=== PATIENT | male | born 1975 | race Caucasian/White ===

== ENCOUNTER → 2019-02-25 | Day surgery (SDC) | payer OTHER ==
[2019-02-24 12:21] LABS: BASOPHILS # (AUTO) 0.1 (0.0-0.1); BASOPHILS % 1.1 % (0.0-1.0); EOSINOPHILS # (AUTO) 0.9 (0.0-0.4); EOSINOPHILS % 11.5 % (0.0-6.0); HEMATOCRIT 42.7 % (38.2-49.6); HEMOGLOBIN 14.3 g/dL (14.0-18.0); LYMPHOCYTES # (AUTO) 2.5 (1.0-3.2); LYMPHOCYTES % 32.1 % (18.0-39.1); MEAN CORPUSCULAR HEMOGLOBIN 31.2 pg (28-32); MEAN CORPUSCULAR HGB CONC 33.5 g/dL (31-35); MEAN CORPUSCULAR VOLUME 93.2 fL (81-99); MONOCYTES # (AUTO) 0.7 (0.2-0.8); MONOCYTES % 8.4 % (4.4-11.3); NEUTROPHILS # (AUTO) 3.7 (2.1-6.9); NEUTROPHILS % 46.8 % (38.7-80.0); PLATELET COUNT 256 x10e3/uL (140-360); RED BLOOD COUNT 4.58 x10e6/uL (4.3-5.7); RED CELL DISTRIBUTION WIDTH 12.1 % (11.7-14.4)
[2019-02-24 12:32] LABS: ANION GAP 16.9 mmol/L (8-16); BLOOD UREA NITROGEN 13 mg/dL (7-26); BUN/CREATININE RATIO 14 (6-25); CALCIUM 9.7 mg/dL (8.4-10.2); CARBON DIOXIDE 27 mmol/L (22-29); CHLORIDE 98 mmol/L (98-107); CREATININE, SERUM 0.91 mg/dL (0.72-1.25); EST GLOMERULAR FILTRATION RATE > 60 ML/MIN (60-); GLUCOSE 190 mg/dL (74-118); POTASSIUM 3.9 mmol/L (3.5-5.1); SODIUM 138 mmol/L (136-145)
--- NOTE | 2019-02-24 12:36 | Diagnostic Imaging Report ---
EXAMINATION: CHEST 2 VIEWS INDICATION: Pre-operative COMPARISON: None FINDINGS: LINES/TUBES:None LUNGS:The lungs are moderately inflated. No focal consolidation or pulmonary edema. PLEURA:No pleural effusion or pneumothorax. MEDIASTINUM:The cardiomediastinal silhouette appears normal in size and shape. BONES/SOFT TISSUES:No acute osseous injury. Thoracic spinal nerve stimulator device partially visualized. ABDOMEN:No free air under the diaphragm. IMPRESSION: No focal pneumonia or pulmonary edema. Signed by: Keon Le MD on 02/24/2019 12:33 PM
[~2019-02-25] MED LIST: ACETAMINOPHEN 1000 MG/100 ML 100 ML IV ONE; ACETAMINOPHEN 1000 MG/100 ML IV ONE; ATIVAN1 MG PO; BABY ASPIRIN81 MG PO; CEFAZOLIN SOD 1 GM/NS 50ML 50 ML IV ONE; DESFLURANE 240 ML BTL INH ONE; DEXAMETHASONE SOD PHOS INJ 4 MG/ML VIAL ONE; FENTANYL CITRATE/PF 100MCG/2 ML INJ ONE; FUROSEMIDE40 MG PO; GLYCOPYRROLATE INJ 1MG/ 5 ML SYR ONE; KETOROLAC TROMETHAMINE 30 MG/ML VIAL ONE; LIDOCAINE HCL 2% LOCAL INJ 5 ML SDV VIAL INJ ONE; LISINOPRIL10 MG PO; METFORMIN HCL500 MG PO; METOPROLOL SUCC50 MG PO; METOPROLOL TART25 MG PO; MIDAZOLAM HCL 2 MG/2 ML VIAL ONE; NEOSTIGMINE 5 MG/5ML SYR ONE; ONDANSETRON HCL INJ 2MG/ML 2ML 2 MG/ML VIAL ONE; PLAVIX75 MG PO; PROPOFOL IV EMULSION 10 MG/ML 20 ML VIAL ONE; ROCURONIUM BROMIDE 10 MG/ML 5ML VIAL ONE; SIMVASTATIN20 MG PO; SUCCINYLCHOLINE 200 MG/10 ML SYR ONE; Z.0.NORVASC5 MG
--- OUTSIDE RECORDS SUMMARY | 2019-02-25 06:36 | XMS REPORT ---
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 Allergies, Adverse Reactions, Alerts This patient has no known allergies or adverse reactions. Medications This patient has no known medications. Results Test Description Test Time Test Comments Text Results Atomic Results Result Comments CHEST 2 VIEWS 2019-02-24 12:31:00 [place] [address] Patient Name: DK IBARRA MR #: [id number] : 1975 Age/Sex: 43/M Req #: [id number] Adm Physician: Ordered by: CHRISTIANO MONTOYA MD Report #: [id number] Location: OR Room/Bed: Procedure: [id number] DX/CHEST 2 VIEWS Exam Date: 02/24/19 Exam Time: 1200 REPORT STATUS: Signed EXAMINATION: CHEST 2 VIEWS INDICATION: Pre-operative COMPARISON: None FINDINGS: LINES/TUBES:None LUNGS:The lungs are moderately inflated. No focal consolidation or pulmonary edema. PLEURA:No pleural effusion or pneumothorax. MEDIASTINUM:The cardiomediastinal silhouette appears normal in size and shape. BONES/SOFT TISSUES:No acute osseous injury. Thoracic spinal nerve stimulator device partially visualized. ABDOMEN:No free air under the diaphragm. IMPRESSION: No focal pneumonia or pulmonary edema. Signed by: Chloe Le MD on 02/24/2019 12:33 PM Dictated By: CHLOE LE MD 1233 Transcribed By: ADAM on 02/24/19 1233 COPY TO: CHRISTIANO MONTOYA MD CT LUMBAR SPINE WO [place] [address] Patient Name: DK IBARRA MR #: [id number] : 1975 Age/Sex: 41/M Req #: [id number] Adm Physician: Ordered by: ALEJANDRO PITTMAN MD Report #: [id number] Location: ER Room/Bed: Procedure: [id number] CT/CT LUMBAR SPINE WO Exam Date: 03/01/17 Exam Time: 2124 REPORT STATUS: Signed History: Back pain, status post fall. Comparison studies: X-ray lumbar spine from 03/01/2017. Report of CT lumbar spine from 10/17/2010, images are not available for comparison at the time of interpretation. Technique: Axial images were obtained through the lumbar spine from L1-S1. Coronal and sagittal images reconstructed from the axial data. Intravenous contrast: None Findings: The usual 5 non-rib bearing lumbar vertebral bodies are present. Alignment: Normal lordosis. No scoliosis. 4 mm grade 1 retrolisthesis at level L2-L3 is likely degenerative. Soft tissues: No abnormalities. Paraspinal muscles: Fatty atrophy of left posterior paraspinal muscles extends from level L4-S1. Sacroiliac joints: Mild degenerative changes in bilateral sacroiliac joints with sclerosis, decreased joint space and vacuum phenomenon. Vertebrae: Chronic compression and anterior wedge-shaped deformity of L1 with approximately 30% loss of vertebral body height particularly in the anterior aspect without retropulsion of fracture fragments into the spinal canal. Chronic mild compression and anterior wedging deformity of L2. 1.2 cm lytic lesion within L3 vertebral body may represent hemangioma or Schmorl's node. Findings suggestive of left hemilaminotomy at level L2 and L4. Degenerative changes: L1-L2: Disc bulge and osteophyte results in mild canal stenosis. No foraminal stenosis. L2-L3: Disc bulge in combination with grade 1 retrolisthesis, bilateral facet arthrosis and thickened ligamentum flavum results in mild canal stenosis. Bilateral mild foraminal stenosis. L3-L4: Asymmetric disc bulge to the left without significant canal stenosis. Mild right and moderate left foraminal stenosis. L4-L5: Asymmetric disc bulge to the right without significant canal stenosis. Mild bilateral foraminal stenosis. Mild bilateral facet arthrosis. L5-S1: Disc bulge without canal stenosis. Mild left facet arthrosis. Bilateral mild foraminal stenosis. IMPRESSION: 1. No acute fracture. 2. Chronic compression and anterior wedge-shaped deformity of L1 and L2 (suboptimal evaluation as prior images are not available for comparison at the time of interpretation, comparison was made with report of CT lumbar spine from 10/17/2010). 3. Lumbar spondylosis as detailed above. 4. Ligament, spinal cord and or vascular abnormalities cannot be excluded on the basis of this examination. Signed by: Dr. Racheal Pollack M.D. on 03/01/2017 10:11 PM Dictated By: RACHEAL POLLACK MD 10 Transcribed By: ADAM on 03/01/172210 COPY TO: ALEJANDRO PITTMAN MD SP LUMBAR AP LATERAL 2-3VWS [place] [address] Patient Name: DK IBARRA MR #: [id number] : 1975 Age/Sex: 41/M Req #: [id number] Adm Physician: Ordered by: [employer] Report #: [id number] Location: ER Room/Bed: Procedure: [id number] DX/SP LUMBAR AP LATERAL 2-3VWS Exam Date: 03/01/17 Exam Time: 1800 REPORT STATUS: Signed PROCEDURE: X-RAY LUMBAR SPINE, TWO VIEWS COMPARISON: None. INDICATIONS: FELL FINDINGS: Previous of the lumbar spine (AP, lateral, and L5-S1 view). There are 5 lumbar-type vertebral bodies. There is moderate disc space narrowing at L1-L2 and L2-L3 with anterior osteophytes. Mild anterior wedging of L1 may be physiologic. Moderate facet arthrosis affects the lower lumbar spine. There is minimal retrolisthesis of L2 on L3. There are no fractures, lytic or blastic lesions. There are mild degenerative changes of the sacroiliac joints.. CONCLUSION: Multilevel degenerative changes of the lumbar spine. Mild anterior wedging of L1 may be physiologic. Correlate site of maximum tenderness. Dictated by: Lasha Solis M.D. on 03/01/2017 at 19:03 Electronically approved by: Lasha Solis M.D. on 03/01/2017 at 19:03 Dictated By: LASHA SOLIS MD 02 Transcribed By: LEONOR on 03/01/171902 COPY TO: [employer] HIP RIGHT 2-3 VW (+/- PELVIS) [place] [address] Patient Name: DK IBARRA MR #: [id number] : 1975 Age/Sex: 41/M Req #: [id number] Adm Physician: Ordered by: [employer] Report #: [id number] Location: ER Room/Bed: Procedure: DX/HIP RIGHT 2-3 VW (+/- PELVIS) Exam Date: Exam Time: REPORT STATUS: Signed PROCEDURE: HIP RIGHT 2-3 VW (+/- PELVIS) COMPARISON: None. INDICATIONS: Fall FINDINGS: 2 views of the right hip (AP and lateral) and one additional AP view of the pelvis No fracture or dislocation. Joint spaces are maintained. Soft tissues are unremarkable. CONCLUSION: No acute posttraumatic abnormality of the pelvis or right hip Dictated by: Lasha Solis M.D. on 03/01/2017 at 19:06 Electronically approved by: Lasha Solis M.D. on 03/01/2017 at 19:06 Dictated By: LASHA SOLIS MD 05 Transcribed By: LEONOR on 03/01/171905 COPY TO: [employer] CT BRAIN WO [place] [address] Patient Name: DK IBARRA MR #: [id number] : 1975 Age/Sex: 41/M Req #: [id number] Adm Physician: Ordered by: [employer] CHA[employer] Report #: [id number] Location: ER Room/Bed: Procedure: CT/CT BRAIN WO Exam Date: 03/01/17 Exam Time: 1800 REPORT STATUS: Signed History: Fall Comparison studies: None Technique: Axial images were obtained from the skull base to the vertex. Coronal and sagittal reconstructions obtained from the axial data. Findings: Scalp/skull: No abnormalities. No fractures, blastic or lytic lesions. Extra-axial spaces: No masses. No fluid collections. Brain sulci: Appropriate for age. Ventricles: Normal in size and configuration. No hydrocephalus. Parenchyma: No abnormal densities. No masses, hemorrhage, acute or chronic cortical vascular insults. Sellar/suprasellar region: No abnormalities Craniocervical junction: Patent foramen magnum. No Chiari one malformation. Left maxilla sinus retention cyst. IMPRESSION: No acute abnormalities. Signed by: DR Carolyn Quach M.D. on 03/01/2017 8:16 PM Dictated By: CAROLYN MAK MD 15 Transcribed By: ADAM on 03/01/172015 COPY TO: [employer] CT CERVICAL SPINE WO [place] [address] Patient Name: DK IBARRA MR #: [id number] : 1975 Age/Sex: 41/M Req #: [id number] Adm Physician: Ordered by: [employer] Report #: [id number] Location: ER Room/Bed: Procedure: [id number] CT/CT CERVICAL SPINE WO Exam Date: 03/01/17 Exam Time: 1800 REPORT STATUS: Signed History: Fall Comparison studies: None Technique: Axial images were obtained through the cervical region.. Coronal and sagittal images reconstructed from the axial data.. Intravenous contrast: None Findings: Airway: Patent. Fractures: None. Soft tissues: No gross abnormalities. Atlantoaxial articulation: Intact. Alignment: Reversal of normal cervical lordosis. Cervicomedullary junction: No abnormalities. The foramen magnum is patent. Vertebrae: No infection or neoplasm. Degenerative changes: Mild. IMPRESSION: 1. No acute fracture or dislocation. Signed by: DR Carolyn Quach M.D. on 03/01/2017 8:30 PM Dictated By: CAROLYN MAK MD 29 Transcribed By: ADAM on 03/01/172029 COPY TO: [employer] FOREARM LEFT 2 VIEW [place] [address] Patient Name: DK IBARRA MR #: [id number] : 1975 Age/Sex: 41/M Req #: [id number] Adm Physician: Ordered by: [employer] Report #: [id number] Location: ER Room/Bed: Procedure: [id number] DX/FOREARM LEFT 2 VIEW Exam Date: 03/01/17 Exam Time: 1799 REPORT STATUS: Signed PROCEDURE: X-RAY LEFT FOREARM, TWO VIEWS COMPARISON: None. INDICATIONS: FELL FINDINGS: 2 views of the left forearm (AP lateral). No fracture or dislocation. Joint spaces are maintained. Soft tissues are unremarkable. CONCLUSION: No acute post traumatic abnormality of the left forearm. Dictated by: Lasha Solis M.D. on 03/01/2017 at 19:08 Electronically approved by: Lasha Solis M.D. on 03/01/2017 at 19:08 Dictated By: LASHA SOLIS MD 07 Transcribed By: LEONOR on 03/01/171907 COPY TO: [employer] ELBOW LEFT COMPLETE [place] [address] Patient Name: DK IBARRA MR #: [id number] : 1975 Age/Sex: 41/M Req #: [id number] Adm Physician: Ordered by: [employer] Report #: [id number] Location: ER Room/Bed: Procedure: [id number] DX/ELBOW LEFT COMPLETE Exam Date: 03/01/17 Exam Time: 1800 REPORT STATUS: Signed PROCEDURE: X-RAY LEFT ELBOW, COMPLETE COMPARISON: None. INDICATIONS: FELL FINDINGS: 3 views of the left elbow (AP, lateral, and oblique) No fracture or dislocation. Joint spaces are maintained. Soft tissues are unremarkable. CONCLUSION: No acute post traumatic abnormality of the left elbow. Dictated by: Lasha Solis M.D. on 03/01/2017 at 19:10 Electronically approved by: Lasha Solis M.D. on 03/01/2017 at 19:10 Dictated By: LASHA SOLIS MD 09 Transcribed By: LEONOR on 03/01/171909 COPY TO: [employer]
--- OUTSIDE RECORDS SUMMARY | 2019-02-25 06:36 | XMS REPORT | Clinical Summary ---
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 Active FLUoxetine (PROzac) 40 MG Take 40 mg by 0 capsule mouth daily. Active amitriptyline (ELAVIL) 25 Take 50 mg by 0 MG tablet mouth nightly. Active metoprolol succinate XL Take 25 mg by 0 (TOPROL-XL) 25 mg 24 hr mouth daily. tablet Active lisinopril Take 10 mg by 0 (PRINIVIL,ZESTRIL) 10 mg mouth daily. tablet Active metFORMIN (GLUCOPHAGE) Take 500 mg 0 500 mg tablet by mouth daily with breakfast. Active gabapentin (NEURONTIN) Take 1,200 mg 0 600 mg tablet by mouth 4 (four) times a day. Active topiramate (TOPAMAX) 50 Take 50 mg by 0 MG tablet mouth 2 (two) times a day. Active clonAZEPAM (KlonoPIN) 1 Take 1 mg by 0 MG tablet mouth 2 (two) times a day as needed for seizures. Active furosemide (LASIX) 20 mg Take 20 mg by 0 tablet mouth daily. Active gemfibrozil (LOPID) 600 Take 600 mg 0 04/10/201 MG tablet by mouth 2 8 (two) times a day. Active morPHINE (MS CONTIN) 30 TAKE 1 TABLET 0 04/27/201 MG 12 hr tablet BY MOUTH 8 EVERY MORNING AND 1 TABLET EVERY EVENING Active quetiapine fumarate Take 300 mg 0 (SEROQUEL ORAL) by mouth nightly. Active zolpidem (AMBIEN) 5 MG Take 5 mg by 0 tablet mouth nightly as needed for sleep. Active busPIRone (BUSPAR) 15 MG Take 15 mg by 0 tablet mouth 4 9 (four) times a day. Active tiZANidine (ZANAFLEX) 4 Take 4 mg by 0 MG tablet mouth 3 9 (three) times a day. 07/10/2018 Discontinued (Discontinued by another clinician) temazepam (RESTORIL) 15 Take 30 mg by 0 mg capsule mouth nightly as needed for sleep. 08/13/2018 Discontinued (Reorder) HYDROcodone-acetaminophen TAKE 1 TABLET 0 (NORCO) 10-325 mg per BY MOUTH 8 tablet EVERY SIX HOURS NEEDED (MAX 4 TABLETS PER DAY) 08/13/2018 Discontinued (Discontinued by another clinician) methocarbamol (ROBAXIN) TAKE 1 TABLET 1 750 MG tablet BY MOUTH 8 THREE TIMES DAILY NEEDED FOR SPASMS 07/10/2018 Discontinued (Discontinued by another clinician) testosterone cypionate Inject 200 mg 0 (DEPOTESTOTERONE into the 8 CYPIONATE) 200 mg/mL shoulder, injection thigh, or buttocks every 14 (fourteen) days. 08/13/2018 Discontinued (Discontinued by another clinician) potassium chloride 20 mEq Take 20 mEq 0 tablet extended release by mouth 2 (two) times a day. 07/10/2018 Discontinued (Discontinued by another clinician) traZODone (DESYREL) 50 MG Take 50-100 0 tablet mg by mouth nightly. 03/18/2018 aspirin 325 MG tablet Take 1 tablet 30 tablet 0 (325 mg 8 total) by mouth daily for 30 days. 03/17/2018 lamoTRIgine (LaMICtal) 25 Take 2 120 tablet 0 MG tablet tablets (50 8 mg total) by mouth 2 (two) times a day for 30 days. 07/20/2018 bisacodyl (DULCOLAX) 10 Insert 1 30 0 mg suppository suppository suppository 9 (10 mg total) into the rectum daily as needed for constipation for up to 30 days. 07/12/2018 Discontinued (Stop Taking at Discharge) clopidogrel (PLAVIX) 75 Take 75 mg by 0 mg tablet mouth daily. 9 07/19/2018 doxycycline (VIBRAMYCIN) Take 2 14 capsule 0 50 MG capsule capsules (100 9 mg total) by mouth 2 (two) times a day for 7 days. 08/20/2018 doxycycline (VIBRAMYCIN) Take 1 14 capsule 0 50 MG capsule capsule (50 9 mg total) by mouth 2 (two) times a day for 7 days. 08/19/2018 HYDROcodone-acetaminophen TAKE 1 TABLET 30 tablet 0 (NORCO) 10-325 mg per BY MOUTH 9 tablet EVERY SIX HOURS NEEDED (MAX 4 TABLETS PER DAY) 01/19/2019 amoxicillin-pot Take 1 tablet 20 tablet 0 clavulanate (AUGMENTIN) by mouth 2 9 875-125 mg per tablet (two) times a day for 10 days. 01/19/2019 doxycycline (VIBRAMYCIN) Take 1 20 capsule 0 100 MG capsule capsule (100 9 mg total) by mouth 2 (two) times a day with meals for 10 days. 01/16/2019 HYDROcodone-acetaminophen Take 1 tablet 28 tablet 0 (NORCO) 10-325 mg per by mouth 9 tablet every 6 (six) hours as needed for moderate pain for up to 7 days. Max Daily Amount: 4 tablets Active Problems Problem Noted Date Pilonidal cyst with abscess 01/06/2019 Right lower quadrant abdominal pain 06/19/2018 Cerebrovascular accident (CVA) 02/12/2018 Chronic pain syndrome 11/22/2017 Hemiplegic migraine 01/26/2017 TIA (transient ischemic attack) TIA (transient ischemic attack) Encounters Care Team Description Date Type Specialty Kole Rondon MD 01/06/2019 Anesthesia General Surgery Event Pedrito Barry MD INCISION AND DRAINAGE, PILONIDAL ABSCESS 01/06/2019 Surgery General Surgery Anand Miller MD Bui, Quynh-Uyen Thi, MD Berberian, Esteban N., MD Pilonidal cyst with abscess (Primary Dx) 01/06/2019 Emergency General Surgery - 01/09/2019 Aren Estrella MD Abdominal pain, unspecified abdominal location (Primary Dx) 11/18/2018 Transcribe Orders Ricky Hathaway MD Abdominal pain, unspecified abdominal location (Primary Dx) 10/30/2018 Emergency Emergency Medicine - 10/31/2018 10/30/2018 Travel Singh Hooks MD Chronic pain syndrome (Primary Dx); Chronic bilateral low back pain with bilateral sciatica 09/02/2018 Office Visit Neurosurgery Sabas Hanna MD Felan, Carol Chaudhary, TATTOO ARTIST 08/13/2018 Anesthesia General Surgery Event Singh Hooks MD REVISION OF SPINAL CORD STIMULATOR GENERATOR POCKET RIGHT HIP 08/13/2018 Surgery General Surgery Singh Hooks MD Chronic pain syndrome 08/13/2018 Hospital General Surgery Encounter 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, 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 (Primary Dx) 08/12/2018 Prep for Neurosurgery Surgery 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, 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 (Primary Dx) 07/22/2018 Clinical Neurosurgery Support Keena Matamoros MD Felan, Carol Chaudhary, TATTOO ARTIST 07/10/2018 Anesthesia General Surgery Event Singh Hooks MD REVISION OF SPINAL CORD STIMULATOR LEAD VIA THORACIC LAMINECTOMY 07/10/2018 Surgery General Surgery Singh Hooks MD Chronic pain syndrome 07/10/2018 Hospital Neurosurgery - Encounter 07/12/2018 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 RN Chronic pain syndrome (Primary Dx) 07/09/2018 Prep for Neurosurgery Surgery Catracho De La Rosa MD Allencherril, Alberto Fernandes MD Right lower quadrant abdominal pain (Primary Dx) 06/19/2018 Emergency Emergency Medicine - 06/20/2018 06/19/2018 Travel after 02/24/2018 Immunizations Name Administration Dates Next Due Pneumococcal 01/09/2019 Polysaccharide Family History Medical History Relation Name Comments Heart attack Mother Stroke Mother Relation Name Status Comments Mother Social History Date Tobacco Use Types Packs/Day Years Used Former Smoker Cigarettes 0.5 5 Smokeless Tobacco: Never Used Comments: quit 8 months ago-2018 Drinks/Week oz/Week Comments Alcohol Use No Sex Assigned at Date Recorded Not on file Industry Job Start Date Occupation Not on file Not on file Not on file Travel End Travel History Travel Start No recent travel history available. Last Filed Vital Signs Reading Time Taken Comments Vital Sign 153/84 01/09/2019 7:59 AM CDT Blood Pressure 70 01/09/2019 7:59 AM CDT Pulse 35.9 C (96.6 F) 01/09/2019 7:59 AM CDT Temperature 18 01/09/2019 7:59 AM CDT Respiratory Rate 95% 01/09/2019 7:59 AM CDT Oxygen Saturation - - Inhaled Oxygen Concentration 154 kg (340 lb) 01/06/2019 11:39 AM CDT Weight 190.5 cm (6' 3") 01/06/2019 11:39 AM CDT Height 42.5 01/06/2019 11:39 AM CDT Body Mass Index Plan of Treatment Health Maintenance Due Date Last Done Comments INFLUENZA VACCINE 01/16/2019 Implants Device Identifier Shelf Expiration Date Model / Serial / Lot Implanted Type Area Manufactur er 10/16/2019 [id number] / / [id number] System Spine Selnt For Dural Selng Cardiovasc N/A: N/A [employer]RA Exact 5ml Duraseal - [id number] ular [employer] Implanted: 07/10/2018 at [facility] (Quantity not on file) 07/26/2021 [id number] / / [id number] Specify Sure Scan Mri Lead - IPM N/A: N/A [employer]- [id number] IMPLANT NEUROLOGIC Implanted: Qty: 1 on 11/22/2017 by [employer] Singh Hooks MD at [facility] 10/13/2018 [id number] / / [id number] Mri - [id number] IPM N/A: N/A [employer]- Implanted: Qty: 1 on 11/22/2017 by IMPLANT NEUROLOGIC Singh Hooks MD at [facility] [employer] 08/15/2018 [id number] / / [id number] Envelope [id number] Neuro Absorb Med IPM N/A: N/A [employer] - [id number] IMPLANT [facility], Implanted: 08/13/[address] [facility] (Quantity not on file) 12/15/2017 [id number] / / [id number] Tyrx Neuro Absorbable Antibacterial Mesh N/A: N/A Envelope, Medium Implant Implanted: Qty: 1 on 11/22/2017 by Singh Hooks MD at [facility] Procedures Comments Procedure Name Priority Date/Time Associated Diagnosis POC GLUCOSE Routine 01/09/2019 6:09 AM CDT POC GLUCOSE Routine 01/08/2019 8:40 PM CDT POC GLUCOSE Routine 01/08/2019 3:29 PM CDT POC GLUCOSE Routine 01/08/2019 11:36 AM CDT POC GLUCOSE Routine 01/08/2019 5:50 AM CDT POC GLUCOSE Routine 01/07/2019 8:18 PM CDT POC GLUCOSE Routine 01/07/2019 3:57 PM CDT POC GLUCOSE Routine 01/07/2019 11:40 AM CDT HC COMPLETE BLD COUNT Routine 01/07/2019 W/AUTO DIFF 6:23 AM CDT POC GLUCOSE Routine 01/06/2019 7:17 PM CDT GRAM STAIN Timed 01/06/2019 6:53 PM CDT AEROBIC CULTURE Timed 01/06/2019 6:53 PM CDT ANAEROBIC CULTURE Timed 01/06/2019 6:53 PM CDT ND AN ELECTIVE Routine 01/06/2019 ENDOTRACHEAL AIRWAY 6:31 PM CDT Procedure Note - Kole Rondon MD - 01/06/2019 6:31 PM CDT Airway Performed by: Kole Rondon MD Authorized by: Kole Rondon MD Location: OR Urgency: Elective Difficult Airway: No Anesthesio logist: Kole Rondon MD Performed by: anesthesio logist Preoxygena stephen with 100% O2: Yes Mask Ventilatio n: Easy mask Final Airway Type: Endotrache al airway Final Endotrache al Airway: ETT Cuffed: Yes Technique Used: Direct laryngosco py Devices/Me thods Used in Placement: Intubatin g stylet Insertion Site: Oral Blade Type: Soni Laryngosco pe Blade/Vide olaryngosc ope Blade Size: 3 ETT Size (mm): 8.5 Cuff at minimum occlusion pressure: Yes Measured from: Lips ETT to Lips (cm): 23 Placement Verified by: CO2 detection, direct visualizat ion and equal breath sounds Laryngosco pic view: Grade IIa - partial view of glottis Rapid Sequence Induction (RSI): Yes Modified RSI: No Number of Attempts at Approach: 1 Pharynx clean during intubation POC GLUCOSE Routine 01/06/2019 4:[address] PELVIS W CONTRAST STAT 01/06/2019 2:39 PM CDT ESTIMATED GFR STAT 01/06/2019 12:50 PM CDT COMPREHENSIVE METABOLIC STAT 01/06/2019 PANEL 12:50 PM CDT HC COMPLETE BLD COUNT STAT 01/06/2019 W/AUTO DIFF 12:[address] ABDOMEN PELVIS W STAT 10/30/2018 CONTRAST 11:00 PM CDT URINALYSIS SCREEN AND STAT 10/30/2018 MICROSCOPY, WITH REFLEX 10:45 PM CDT TO CULTURE URINE CULTURE STAT 10/30/2018 10:45 PM CDT XR CHEST 2 VW STAT 10/30/2018 9:13 PM CDT ECG 12-LEAD STAT 10/30/2018 9:01 PM CDT TROPONIN STAT 10/30/2018 7:36 PM CDT CREATINE KINASE, TOTAL STAT 10/30/2018 (CPK) 7:36 PM CDT B NATRIURETIC PEPTIDE STAT 10/30/2018 7:36 PM CDT ESTIMATED GFR STAT 10/30/2018 7:36 PM CDT LIPASE LEVEL STAT 10/30/2018 7:36 PM CDT COMPREHENSIVE METABOLIC STAT 10/30/2018 PANEL 7:36 PM CDT HC COMPLETE BLD COUNT STAT 10/30/2018 W/AUTO DIFF 7:36 PM CDT ECG 12-LEAD STAT 08/13/2018 1:06 PM PERCH MENDER TROPONIN STAT 08/13/2018 1:00 PM PERCH MENDER POC GLUCOSE Routine 08/13/2018 11:49 AM PERCH MENDER ND AN ELECTIVE Routine 08/13/2018 ENDOTRACHEAL AIRWAY 10:56 AM PERCH MENDER Procedure Note - Ashanti Elder CRNA - 08/13/2018 10:56 AM PERCH MENDER Airway Date/Time: 08/13/2018 10:32 AM Performed by: Ashanti Elder CRNA Authorized by: Matt Arriaga MD Location: OR Urgency: Elective Difficult Airway: No Resident/C RNA/AA: Ashanti Elder CRNA Performed by: resident/C RNA/AA Preoxygena stephen with 100% O2: Yes C-spine Precaution s Maintained Throughout : Yes Mask Ventilatio n: Assisted mask ( two providers with oral aireay, very wide face ) Final Airway Type: Endotrache al airway Final Endotrache al Airway: ETT Technique Used: Video laryngosco py Devices/Me thods Used in Placement: Intubatin g stylet Insertion Site: Oral Blade Type: Soni Laryngosco pe Blade/Vide olaryngosc ope Blade Size: 3 ETT Size (mm): 8.0 Measured from: Lips ETT to Lips (cm): 23 Placement Verified by: CO2 detection, direct visualizat ion and equal breath sounds Laryngosco pic view: Grade I - full view of glottis Rapid Sequence Induction (RSI): No Modified RSI: No Number of Attempts at Approach: 1 INSERTION, 08/13/2018 Chronic pain syndrome NEUROSTIMULATOR PULSE 10:12 AM PERCH MENDER Lumbar radiculopathy GENERATOR, SPINAL, SUBCUTANEOUS Special Needs REQ 0730 START, MediaSpike, SocialiteRON TABLE POC GLUCOSE Routine 08/13/2018 8:30 AM PERCH MENDER ESTIMATED GFR STAT 08/13/2018 8:25 AM PERCH MENDER PROTHROMBIN TIME WITH INR STAT 08/13/2018 8:25 AM PERCH MENDER PARTIAL THROMBOPLASTIN STAT 08/13/2018 TIME (PTT) 8:25 AM PERCH MENDER HC COMPLETE BLD COUNT STAT 08/13/2018 W/AUTO DIFF 8:25 AM PERCH MENDER BASIC METABOLIC PANEL STAT 08/13/2018 8:25 AM PERCH MENDER POC GLUCOSE Routine 07/12/2018 11:18 AM PERCH MENDER POC GLUCOSE Routine 07/11/2018 11:30 PM PERCH MENDER POC GLUCOSE Routine 07/11/2018 9:42 PM PERCH MENDER POC GLUCOSE Routine 07/11/2018 4:32 PM PERCH MENDER POC GLUCOSE Routine 07/11/2018 11:55 AM PERCH MENDER POC GLUCOSE Routine 07/11/2018 7:42 AM PERCH MENDER POC GLUCOSE Routine 07/10/2018 9:01 PM PERCH MENDER POC GLUCOSE Routine 07/10/2018 1:26 PM PERCH MENDER OR FL > 1 HOUR Routine 07/10/2018 12:25 PM PERCH MENDER ND AN ELECTIVE Routine 07/10/2018 ENDOTRACHEAL AIRWAY 10:50 AM PERCH MENDER Procedure Note - Godwin Warren CRNA - 07/10/2018 10:50 AM PERCH MENDER ANESTHESIA INTUBATION Date/Time: 07/10/2018 10:15 AM Performed by: Godwin Warren CRNA Authorized by: Keena Matamoros MD Location: OR Urgency: Elective Resident/C RNA/AA: Godwin Warren CRNA Performed by: resident/C RNA/AA Preoxygena stephen with 100% O2: Yes Mask Ventilatio n: Easy mask (with [address] Final Airway Type: Endotrache al airway Final Endotrache al Airway: ETT Cuffed: Yes Technique Used: Video laryngosco py Devices/Me thods Used in Placement: Intubatin g stylet Insertion Site: Oral Blade Type: Soni Laryngosco pe Blade/Vide olaryngosc ope Blade Size: 4 ETT Size (mm): 8.0 Cuff at minimum occlusion pressure: Yes Measured from: Teeth ETT to Teeth (cm): 25 Placement Verified by: CO2 detection, direct visualizat ion and equal breath sounds Laryngosco pic view: Grade I - full view of glottis Rapid Sequence Induction (RSI): No Modified RSI: No Number of Attempts at Approach: 1 Eyes taped shut prior to airway manipulati on. Glidescope used electively . No apparent trauma to oral mucosa or dentition secondary to intubation . ETT secured. INSERTION, 07/10/2018 Chronic pain syndrome NEUROSTIMULATOR PULSE 10:05 AM PERCH MENDER Displacement of electrode GENERATOR, SPINAL, lead of implanted SUBCUTANEOUS electronic neurostimulator of spinal cord, initial encounter ([facility]) Case Notes C-ARM, KIM TABLE, [employer]TRON[employer] DEVICE, POSSIBLE EXTENDED STAY Special Needs C-ARM, KIM TABLE, [employer] DEVICE, POSSIBLE EXTENDED STAY POC GLUCOSE Routine 07/10/2018 9:02 AM PERCH MENDER URINALYSIS SCREEN AND STAT 06/19/2018 MICROSCOPY, WITH REFLEX 10:00 PM PERCH MENDER TO CULTURE URINE CULTURE STAT 06/19/2018 10:[address] ABDOMEN PELVIS W STAT 06/19/2018 CONTRAST 8:59 PM PERCH MENDER ESTIMATED GFR STAT 06/19/2018 7:10 PM PERCH MENDER LIPASE LEVEL STAT 06/19/2018 7:10 PM PERCH MENDER COMPREHENSIVE METABOLIC STAT 06/19/2018 PANEL 7:10 PM PERCH MENDER HC COMPLETE BLD COUNT STAT 06/19/2018 W/AUTO DIFF 7:10 PM PERCH MENDER after 02/24/2018 Results * POC glucose (01/09/2019 6:09 AM CDT) Only the most recent of 21 results within the time period is included. POC glucose 131 (H) 65 - 100 mg/dL [place] Comment: [facility] Meter ID: [id number] [place] Alterations Manager: [facility] Specimen Performing Organization Address City/State/Zipcode Phone Number [facility] DEPARTMENT OF [address] [place] [address] PATHOLOGY AND GENOMIC MEDICINE [place] [facility] [address] * CBC with platelet and differential (01/07/2019 6:23 AM CDT) Only the most recent of 5 results within the time period is included. WBC 8.9 4.2 - 11.0 k/uL [facility] RBC 4.12 4.04 - 5.86 m/uL [facility] HGB 13.0Comment: REPEAT=13.0 HGB 13.0 - 17.3 g/dL [facility] HCT 40.1 34.0 - 45.0 % [facility] MCV 97.3 80.0 - 98.0 fL [facility] MCH 31.6 27.0 - 34.0 pg [facility] MCHC 32.4 31.5 - 36.5 g/dL [facility] RDW - SD 44.3 37.0 - 51.0 fL [facility] MPV 9.7 7.4 - 10.4 fL [facility] Platelet count 242 150 - 400 k/uL [facility] Nucleated RBC 0.00 /100 WBC [facility] Neutrophils 49.0 36.0 - 66.0 % [facility] Lymphocytes 30.7 24.0 - 44.0 % [facility] Monocytes 9.4 (H) 0.0 - 6.0 % [facility] Eosinophils 9.6 (H) 0.0 - 6.0 % [facility] Basophils 1.0 0.0 - 1.2 % [facility] Immature 0.3 0.0 - 1.0 % [place] granulocytes [facility] Specimen Blood Performing Organization Address City/State/Zipcode Phone Number [facility] DEPARTMENT OF [address] [place] [address] PATHOLOGY AND GENOMIC MEDICINE [facility] [address] [place] [address] HOSPITAL * Aerobic culture (01/06/2019 6:53 PM CDT) Aerobic culture Streptococcus anginosus group [place] isolate Occasional [facility] () [facility] Comment: Specimen Information Specimen Source: Abscess Specimen Site: Back Specimen Abscess - Back Performing Organization Address City/State/Zipcode Phone Number [facility] DEPARTMENT OF [address] [place] [address] PATHOLOGY AND GENOMIC MEDICINE [place] [facility] [address] [place] [address] * Gram stain (01/06/2019 6:53 PM CDT) Gram stain Many WBC's [place] isolate No organisms seen [facility] Comment: HOSPITAL Specimen Information Specimen Source: Abscess Specimen Site: Back Specimen Abscess - Back Performing Organization Address [facility] Phone Number [facility] DEPARTMENT OF [address] [place] [address] PATHOLOGY AND [facility] MEDICINE [place] [facility] [address] [place] [address] * Anaerobic culture (01/06/2019 6:53 PM CDT) Anaerobic No anaerobic organisms [place] culture isolate isolated. [facility] Comment: HOSPITAL Specimen Information Specimen Source: Abscess Specimen Site: Back Specimen Abscess - Back Performing Organization Address [facility] Phone Number [facility] [place] [address] PATHOLOGY AND [facility] MEDICINE [place] DR[facility] * CT Pelvis W Contrast (01/06/2019 2:39 PM CDT) Specimen Narrative Performed At EXAMINATION:CT PELVIS W CONTRAST HM RADIANT CLINICAL HISTORY:large area of swellingredness and TTP to the superior gluteal cleft.History of pilonidalstates symptoms worse than in the past. TECHNIQUE:Multiple axial images of the pelvis were obtained following intravenous administration of iodinated contrast. CT imaging was performed with iterative reconstruction technique and/or automated exposure control to reduce radiation dose. COMPARISON:CT of the abdomen and pelvis dated 10/30/2018 FINDINGS: 1.There is a peripherally enhancing fluid collection in the subcutaneous fat superficial to the sacrum along the gluteal cleft which is best seen on series 602, image 42 of the sagittal images. This extends approximately 8 cm in the craniocaudal dimension, 2.4 cm in the anteroposterior dimension, and approximately 2.6 cm in the transverse dimension and is most consistent with a pilonidal infected cyst or abscess. 2.Adjacent to the cyst or fluid collection, there is edema and stranding the subcutaneous fat consistent with cellulitis. 3.The anus and perineum are unremarkable without evidence of inflammation. The rectum is grossly unremarkable. Descending colonic stool without evidence of obstruction. 4.Limited assessment of the retroperitoneum demonstrates no visible adenopathy. The appendix is normal. Imaged small bowel is grossly unremarkable. The bladder is underdistended. The prostate is not enlarged. No definite iliac chain, pelvic sidewall, renal lymph nodes by size criteria. 5.Note is made of a lipoma of the greater sciatic foramen extending into the subgluteal space. The sciatic nerve is displaced anteriorly. 6.Right gluteal injection granulomata or fat necrosis. No definite suspicious bony abnormality. IMPRESSION: Subcutaneous fluid collection extending along the gluteal cleft with surrounding inflammation in the subcutaneous fat is most consistent with an infected pilonidal cyst or abscess. Lipoma of the greater sciatic foramen extending into the subgluteal space. Additional findings and details as above. [facility]-[id number] Procedure Note [facility], Radiology Results Incoming - 01/06/2019 3:04 PM CDT EXAMINATION: CT PELVIS W CONTRAST CLINICAL HISTORY: large area of swelling redness and TTP to the superior gluteal cleft. History of pilonidal states symptoms worse than in the past. TECHNIQUE: Multiple axial images of the pelvis were obtained following intravenous administration of iodinated contrast. CT imaging was performed with iterative reconstruction technique and/or automated exposure control to reduce radiation dose. COMPARISON: CT of the abdomen and pelvis dated 10/30/2018 FINDINGS: 1. There is a peripherally enhancing fluid collection in the subcutaneous fat superficial to the sacrum along the gluteal cleft which is best seen on series 602, image 42 of the sagittal images. This extends approximately 8 cm in the craniocaudal dimension, 2.4 cm in the anteroposterior dimension, and approximately 2.6 cm in the transverse dimension and is most consistent with a pilonidal infected cyst or abscess. 2. Adjacent to the cyst or fluid collection, there is edema and stranding the subcutaneous fat consistent with cellulitis. 3. The anus and perineum are unremarkable without evidence of inflammation. The rectum is grossly unremarkable. Descending colonic stool without evidence of obstruction. 4. Limited assessment of the retroperitoneum demonstrates no visible adenopathy. The appendix is normal. Imaged small bowel is grossly unremarkable. The bladder is underdistended. The prostate is not enlarged. No definite iliac chain, pelvic sidewall, renal lymph nodes by size criteria. 5. Note is made of a lipoma of the greater sciatic foramen extending into the subgluteal space. The sciatic nerve is displaced anteriorly. 6. Right gluteal injection granulomata or fat necrosis. No definite suspicious bony abnormality. IMPRESSION: Subcutaneous fluid collection extending along the gluteal cleft with surrounding inflammation in the subcutaneous fat is most consistent with an infected pilonidal cyst or abscess. Lipoma of the greater sciatic foramen extending into the subgluteal space. Additional findings and details as above. [id number] Performing Organization Address City/[facility]/Zipcode Phone Number [facility] [address] [place] [address] * Estimated GFR (01/06/2019 12:50 PM CDT) Only the most recent of 4 results within the time period is included. Pathologist [facility] Estimated GFR >=90 mL/min/1.73 m2 [place] Comment: [facility] G1 >=90 Normal or high G2 60-89Mildly decreased [id number] Mildly to moderately decreased [id number] Moderately to severely decreased G4 15-29Severely decreased G5 <15Kidney failure The eGFR was calculated using the Chronic Kidney Disease Epidemiology Collaboration (CKD-EPI) equation. Interpretation is based on recommendations of the National Kidney Foundation-Kidney Disease Outcomes Quality Initiative (NKF-KDOQI) published in 2014. Specimen Plasma specimen Performing Organization Address City/[facility]/Zipcode Phone Number [facility] DEPARTMENT OF [address] [id number] PATHOLOGY AND GENOMIC MEDICINE [facility] [address] * Comprehensive metabolic panel (01/06/2019 12:50 PM CDT) Only the most recent of 3 results within the time period is included. [facility] Sodium 140 135 - 150 mEq/L [facility] Potassium 5.0 3.5 - 5.0 mEq/L [facility] Chloride 100 98 - 112 mEq/L [facility] CO2 26 24 - 31 mmol/L [facility] Anion gap 14@ANIO 7 - 15 mEq/L [facility] BUN 12 7 - 18 mg/dL [facility] Creatinine 0.80 0.70 - 1.20 mg/dL [facility] Glucose 264 (H) 65 - 100 mg/dL [facility] Calcium 10.1 8.3 - 10.2 mg/dL [facility] Protein 8.2 6.3 - 8.3 g/dL [facility] Albumin 4.4 3.5 - 5.0 g/dL [facility] A/G ratio 1.2 0.7 - 3.8 [facility] Alkaline 125 0 - 129 U/L [place] phosphatase [facility] AST 69 (H) 10 - 50 U/L [facility] ALT 72 (H) 5 - 50 U/L [facility] Total bilirubin 0.3 0.2 - 1.2 mg/dL [facility] Specimen Plasma specimen Performing Organization Address City/State/Zipcode Phone Number [facility] DEPARTMENT OF [address] [place] [address] PATHOLOGY AND GENOMIC MEDICINE [facility] [address] [place] [address] * CT Abdomen Pelvis W Contrast (10/30/2018 11:00 PM CDT) Only the most recent of 2 results within the time period is included. Specimen Narrative Performed At Examination:CT ABDOMEN PELVIS W CONTRAST [facility] Clinical History: periumbilical pain and RLQ pain Comparison: None. Findings: CT scans are performed using radiation dose reduction techniques.Technical factors are evaluated and adjusted to ensure appropriate moderation of exposure.Automated dose management technology is applied to adjust radiation exposure while achieving a diagnostic quality image. CT imaging was performed with iterative reconstruction techniques and/or automated exposure control to reduce radiation dose. CT scan of the abdomen and pelvis was performed after intravenous contrast. The liver is diffusely low in density. The spleen, pancreas, and adrenal glands are unremarkable. The kidneys are within normal limits without hydronephrosis. The appendix is unremarkable. No bowel wall thickening or fat stranding is seen. No bowel dilatation is seen. Small umbilical hernia is noted which contains only fat. No free air or fluid is seen. Urinary bladder is not well-distended and not well evaluated. The visualized lung bases are clear. IMPRESSION: 1. Mild fatty liver. 2. Small umbilical hernia contains only fat. 3. Otherwise no acute abnormality identified in the abdomen or pelvis. [facility]-[id number] Procedure Note Interface, Radiology Results Incoming - 10/30/2018 11:20 PM CDT Examination: CT ABDOMEN PELVIS W CONTRAST Clinical History: periumbilical pain and RLQ pain Comparison: None. Findings: CT scans are performed using radiation dose reduction techniques. Technical factors are evaluated and adjusted to ensure appropriate moderation of exposure. Automated dose management technology is applied to adjust radiation exposure while achieving a diagnostic quality image. CT imaging was performed with iterative reconstruction techniques and/or automated exposure control to reduce radiation dose. CT scan of the abdomen and pelvis was performed after intravenous contrast. The liver is diffusely low in density. The spleen, pancreas, and adrenal glands are unremarkable. The kidneys are within normal limits without hydronephrosis. The appendix is unremarkable. No bowel wall thickening or fat stranding is seen. No bowel dilatation is seen. Small umbilical hernia is noted which contains only fat. No free air or fluid is seen. Urinary bladder is not well-distended and not well evaluated. The visualized lung bases are clear. IMPRESSION: 1. Mild fatty liver. 2. Small umbilical hernia contains only fat. 3. Otherwise no acute abnormality identified in the abdomen or pelvis. [facility]-[id number] Performing Organization Address City/State/Zipcode Phone Number [facility] [address] [place] [address] * Urinalysis screen and microscopy, with reflex to culture (10/30/2018 10:45 PM CDT) Only the most recent of 2 results within the time period is included. Specimen site Catheterized [facility] Color, UA Yellow [facility] Appearance, UA Clear [facility] Specific 1.021 1.001 - 1.035 [place] gravity, UA [facility] pH, UA 5.0 5.0 - 8.5 [facility] Protein, UA Negative Negative [facility] Glucose, UA 3+ (A) Negative [facility] Ketones, UA Negative Negative [facility] Bilirubin, UA Negative Negative [facility] Blood, UA Negative Negative [facility] Nitrite, UA Negative Negative [facility] Urobilinogen, Negative <2.0 [place] UA [facility] Leukocyte Negative Negative [place] esterase, UA [facility] WBC, UA 1 0 - 1 /HPF [facility] RBC, UA 1 0 - 5 /HPF [facility] Bacteria, UA None seen None seen [facility] Yeast, UA None seen [facility] Yeast with None seen [place] pseudohyphae, [facility] Specimen Urine Performing Organization Address City/[facility]/Zipcode Phone Number [facility] DEPARTMENT OF [facility] [place] [address] PATHOLOGY AND GENOMIC MEDICINE [address] [place] * Urine culture (10/30/2018 10:45 PM CDT) Only the most recent of 2 results within the time period is included. Urine culture SEE COMMENTComment: [place] Bacteriuria screen negative. [facility] Specimen Urine Performing Organization Address City/[facility]/Zipcode Phone Number [facility] DEPARTMENT OF [address] [place] [address] [place] [address] PATHOLOGY AND GENOMIC MEDICINE [address] [place] * XR Chest 2 Vw (10/30/2018 9:13 PM CDT) Specimen Narrative Performed At EXAMINATION: XR CHEST 2 VW [facility] CLINICAL HISTORY: upper abd pain COMPARISON:10/16/2016. IMPRESSION: Bibasilar subsegmental atelectasis. The lungs are otherwise clear. No pleural effusion or pneumothorax. The cardiomediastinal silhouette is normal. No acute osseous abnormalities. Electrodes project over the lower thoracic spine. [facility]-[id number] Procedure Note Hm Interface, Radiology Results Incoming - 10/30/2018 9:19 PM CDT EXAMINATION: XR CHEST 2 VW CLINICAL HISTORY: upper abd pain COMPARISON: 10/16/2016. IMPRESSION: Bibasilar subsegmental atelectasis. The lungs are otherwise clear. No pleural effusion or pneumothorax. The cardiomediastinal silhouette is normal. No acute osseous abnormalities. Electrodes project over the lower thoracic spine. [facility]-[id number] Performing Organization Address City/[facility] Cent[facility]ode Phone Number [facility] [address] [place] [address] * ECG 12 lead (10/30/2018 9:01 PM CDT) Only the most recent of 2 results within the time period is included. Pathologist [facility] Ventricular 77 [facility] rate Atrial rate 77 [facility] ND interval 136 [facility] QRSD interval 104 [facility] QT interval 416 [facility] QTC interval 470 [facility] P axis 1 48 [facility] QRS axis 1 -5 [facility] T wave axis 26 [facility] MUSE EKG impression Normal sinus rhythm-Normal [facility] MUSE ECG-In automated comparison with ECG of 13-AUG-2018 13:06,-No significant change was found- Specimen Narrative Performed At Performing Organization Address [facility] Phone Number [facility] MUSE [address] [place] [address] * Troponin (10/30/2018 7:36 PM CDT) Only the most recent of 2 results within the time period is included. [facility] Troponin <0.006 0.000 - 0.040 ng/mL [place] Comment: [facility] changed methodology effective: HOSPITAL 10/22/2018 at 10:00 am The new method has a 99th percentile cutoff of 0.040 ng/mL Specimen Plasma specimen Performing Organization Address [facility] Cent[facility]oid Phone Number [facility] [place] [address] PATHOLOGY AND [facility] MEDICINE [address] * B natriuretic peptide (10/30/2018 7:36 PM CDT) [facility] BNP 5 0 - 100 pg/mL [facility] Specimen Blood Performing Organization Address [facility] Phone Number [facility] DEPARTMENT [address] [place] [address] PATHOLOGY AND [facility] MEDICINE [address] * Lipase level (10/30/2018 7:36 PM CDT) Only the most recent of 2 results within the time period is included. Lipase 18 13 - 60 U/L [facility] Specimen Plasma specimen Performing Organization Address City/[facility] [place] [address] PATHOLOGY AND [facility] MEDICINE [address] * Creatine kinase, total (CPK) (10/30/2018 7:36 PM CDT) Creatine kinase 109 39 - 308 U/L [facility] Specimen Plasma specimen Performing Organization Address [facility] [place] [place] [address] PATHOLOGY AND [facility] MEDICINE [address] * Partial thromboplastin time, activated (08/13/2018 8:25 AM PERCH MENDER) PTT 31.0 23.0 - 36.0 sec [place] Comment: [facility] PTT therapeutic range for HOSPITAL unfractionated heparin is 61.0-112.0 seconds which corresponds to Anti-Xa 0.3-0.7 U/ml. Specimen Blood Performing Organization Address [facility] Phone Number [facility] DEPARTMENT [address] * Prothrombin time with INR (08/13/2018 8:25 AM PERCH MENDER) Prothrombin 13.0 11.5 - 14.5 sec [facility] INR 1.0 [place] Comment: [facility] The International Normalized HOSPITAL Ratio (INR) is a therapeutic monitoring tool for patients who are stable on oral anticoagulant therapy. An INR of 2.0-3.0 is suggested for deep vein thrombosis/pulmonary embolism. Specimen Blood Performing Organization Address City/[facility] Centercode Phone Number [facility] [place] [address] PATHOLOGY AND [facility] MEDICINE [address] * Basic metabolic panel (08/13/2018 8:25 AM PER[facility] MENDER) Sodium 140 135 - 148 mEq/L [facility] Potassium 4.6 3.5 - 5.0 mEq/L [facility] Chloride 101 98 - 112 mEq/L [facility] CO2 25 24 - 31 mEq/L [facility] Anion gap 14@ANIO 7 - 15 mEq/L [facility] BUN 21 (H) 6 - 20 mg/dL [facility] Creatinine 0.84 0.70 - 1.20 mg/dL [facility] Glucose 157 (H) 65 - 99 mg/dL [facility] Calcium 9.0 8.3 - 10.2 mg/dL [facility] Specimen Plasma specimen Performing Organization Address City/[facility] Centercode Phone Number [facility] DEPARTMENT OF [address] [place] [address] PATHOLOGY [place] [address] HOSPITAL * OR [place] > I Hour (07/10/2018 12:25 PM PERCH MENDER) Specimen Narrative Performed At EXAMINATION:OR [place] 1 HOUR [facility] C-arm fluoroscopy was requested in OR. LOCATION:[facility]10 PROCEDURE: Spinal Stimulator via Onovative START: 1045 END: 1220 FLUORO TIME: 0.1min DOSE: 7.63 TECH(S): MA IMPRESSION: Separate operative report will be issued by the physician performing the procedure. [id number] Procedure Note Hm Interface, Radiology Results Incoming - 07/10/2018 9:31 PM PERCH MENDER EXAMINATION: [place] 1 HOUR C-arm fluoroscopy was requested in OR. LOCATION:[facility] PROCEDURE: Spinal Stimulator via Onovative START: 1045 END: 1220 FLUORO TIME: 0.1min DOSE: 7.63 TECH(S): MA IMPRESSION: Separate operative report will be issued by the physician performing the procedure. [id number] Performing Organization Address City/State/Zipcode Phone Number [facility] [address] [place] [address] after 02/24/2018 Insurance Type Payer Benefit Subscriber ID Effective Phone Address Plan / Dates Group O [employer]US TEXAN[employer]US xxxxxxxxx [id number] JUDIE moraes Advance Directives For more information, please contact: [phone] Patient Radio Commentator Explanation Type Date Recorded Advance Directives, 08/09/2015 10:21 AM Living Will and Medical Power of Hydraulic Engineer Advance Directives, 09/10/2015 11:21 PM Living Will and Medical Power of Hydraulic Engineer Advance Directives, 10/19/2015 8:38 PM Living Will and Medical Power of Hydraulic Engineer Advance Directives, 10/29/2015 1:20 PM Living Will and Medical Power of Hydraulic Engineer Advance Directives, 07/10/2018 4:28 PM Living Will and Medical Power of Hydraulic Engineer Advance Directives, 02/02/2016 1:16 PM Living Will and Medical Power of Hydraulic Engineer Advance Directives, 01/26/2017 11:06 PM Living Will and Medical Power of Hydraulic Engineer Advance Directives, 01/06/2019 1:42 PM Living Will and Medical Power of Hydraulic Engineer Advance Directives, 06/19/2018 8:24 PM Living Will and Medical Power of Hydraulic Engineer Date Inactivated Comments Code Status Date Activated 01/28/2017 3:30 AM Full Code 01/27/2017 5:07 AM Code Status decision reached by: Patient
--- NOTE | 2019-02-25 07:10 | NUR ---
SPIRITUAL CARE - Pre-Surgery Assessment: Pt in bed. Pt reported supportive attention from family and friends. Intervention: I provided pastoral presence, hospitality, and sympathetic listening. I acquainted pt with availability of statistical technician while hospitalized. Outcome: Pt expressed appreciation for visit. No need for follow up indicated at this time. CRISTIAN [facility]lain Spiritual Care Department O: [phone] Pager: [phone] ([phone] number calling from)
[2019-02-25 11:20] VITALS: BP 128/76
--- NOTE | 2019-02-25 18:42 | Operative Report ---
DATE OF PROCEDURE: 02/25/2019 SURGEON: Kushal Mcneill MD PREOPERATIVE DIAGNOSIS: Recurrent pilonidal cyst. POSTOPERATIVE DIAGNOSIS: Recurrent pilonidal cyst. PROCEDURES: 1. Excision of recurrent pilonidal cyst. 2. Complicated repair. ANESTHESIA: General. HISTORY: The patient is a 43-year-old male, who underwent excision of a pilonidal cyst approximately 6 months ago. The cyst recurred and is draining, and appears to be infected. The surgeon had the patient transferred to my care because of the extensive nature of the recurrence and the need for extensive repair. Risks, benefits, and alternatives were discussed with the patient and the family. They are prepared to undergo the procedure as outlined. PROCEDURE IN DETAIL: The patient was marked preoperatively in the holding area. He was brought to the operating theater. After the induction of adequate general anesthesia, he was prepped and draped in a prone position. The time-out was performed. The incision from the prior pilonidal cyst measures approximately 8 cm in length. It was completely dehisced for the bottom 3-4 cm. In the intermediate portion, the skin was quite thin, but it was intact. Probing of the cyst reveals that it tracks cephalad for several centimeters. The area was infiltrated with 1% Xylocaine with epinephrine and a mixture of 0.5% plain Marcaine. The dehisced portion was then excised through the skin and subcutaneous tissue. Bleeding was controlled using electrocautery. Using the scalpel, the incision was deepened, so that the cyst and its tract were encountered. Direct excision of the cyst and the sinus tract all the way down to the presacral fascia was performed. The cyst was then removed in its entirety along with its tract. The wound bed was made hemostatic using electrocautery. Copious irrigation ensued and hemostasis was made absolute with electrocautery. At this point, the cavity was opened completely. There was no further sinus tracts and there does not appear to be any abscess or cyst wall remaining. The tissues are elevated off the presacral plane using the electrocautery widely. Using 2-0 Vicryl sutures in an interrupted [id number] fashion, the deepest layers were approximated covering the presacral fascia. At this point, the intermediate layers of tissue were closed with 2-0 Vicryl in an interrupted [id number] fashion as well. This removed the majority of the space. The superficial tissues were then closed with a 2-0 silk sutures in an interrupted horizontal mattress fashion. Bactroban ointment, Xeroform gauze, and a sterile bulking conforming bandage were applied to the incision of the intergluteal crease and held with Medipore tape. The patient was then made supine, extubated, and returned to recovery room in satisfactory condition. He was discharged with a postoperative instruction sheet as well as a followup appointment. MD JASMYNE Wolfe/HODA /[id number]
== END | disposition home or self-care (01) ==
LOC: OR 06:27
PROVIDERS: ATTEND Plastic Surgery
DX: L05.01 Pilonidal cyst with abscess (principal); I10 Essential (primary) hypertension; R06.02 Shortness of breath; Z01.812 Encounter for preprocedural laboratory examination; Z01.818 Encounter for other preprocedural examination; Z79.82 Long term (current) use of aspirin; Z79.84 Long term (current) use of oral hypoglycemic drugs; Z79.02 Long term (current) use of antithrombotics/antiplatelets; Z86.73 Personal history of transient ischemic attack (TIA), and cerebral infarction without residual deficits
CPT/HCPCS: 11772; 36415 ×2; 71046; 80048; 82948; 85025; 88304; J0131; J0690; J1100; J1885; J2001; J2250; J2405; J2704; J3010; J3490